=== PATIENT | female | born 1975 | race Caucasian/White ===

== ENCOUNTER 2022-08-27 21:29 | Emergency (ER) | payer SELFPAY ==
[~2022-08-27] VITALS: Ht 157.5 cm; Wt 79.0 kg
[2022-08-27 22:12] VITALS: BP 135/71
[2022-08-27] MEDS ORDERED: IBUPROFEN 600MG TABLET PO ONE (22:15)
[2022-08-27] MEDS ORDERED: NAPR500T7 MT (22:56)
== END 2022-08-27 23:10 | disposition home or self-care (01) ==
LOC: ER 21:29
DX: S89.91XA Unspecified injury of right lower leg, initial encounter (principal); G89.11 Acute pain due to trauma; M25.521 Pain in right elbow; G43.909 Migraine, unspecified, not intractable, without status migrainosus; W19.XXXA Unspecified fall, initial encounter; Y93.89 Activity, other specified; Y92.488 Other paved roadways as the place of occurrence of the external cause; Y99.8 Other external cause status
CPT/HCPCS: 29505; 73070; 73560; 73590; 81025; 99284

== ENCOUNTER 2022-09-07 15:41 | Emergency (ER) | payer BC ==
[~2022-09-07] VITALS: Ht 157.5 cm; Wt 81.0 kg
[~2022-09-07 15:41] MED LIST: NAPR500T7 MT
[2022-09-07] MEDS ORDERED: P50 MT (17:53)
[2022-09-07] MEDS ORDERED: T3 PO (17:53)
[2022-09-07] MEDS ORDERED: GABA-532 MT (17:53)
[2022-09-07] MEDS ORDERED: FLAX1CAP9 PO (17:53)
[2022-09-07] MEDS ORDERED: HYPR15DR23 CO (17:55)
[2022-09-07] MEDS ORDERED: ACETAMINOPHEN WITH CODEINE 300/30MG TABLET PO ONE (18:00)
[2022-09-07] MEDS ORDERED: GABAPENTIN 300MG CAPSULE PO ONE (18:00)
[2022-09-07 19:17] VITALS: BP 132/78
== END 2022-09-07 19:19 | disposition home or self-care (01) ==
LOC: ER 15:41
DX: B01.9 Varicella without complication (principal); G43.909 Migraine, unspecified, not intractable, without status migrainosus; Z79.899 Other long term (current) drug therapy
CPT/HCPCS: 81025; 99283

== ENCOUNTER 2022-09-19 18:52 | Emergency (ER) | payer BC ==
[~2022-09-19] VITALS: Ht 157.5 cm; Wt 76.0 kg
[~2022-09-19 18:52] MED LIST changes: +FLAX1CAP9 PO; +GABA-532 MT; +HYPR15DR23 CO; +P50 MT; +T3 PO
[2022-09-19 19:06] VITALS: BP 112/76
[2022-09-19] MEDS ORDERED: FLUORESCEIN SODIUM 1MG/STRIP LEFTEYE ONE (20:30)
[2022-09-19] MEDS ORDERED: TETRACAINE 0.5% OPHTH DROPS 4ML LEFTEYE ONE (20:30)
[2022-09-19] MEDS ORDERED: VALA100044 MT (23:46)
[2022-09-19] MEDS ORDERED: ACET-2708 MT (23:46)
[2022-09-19] MEDS ORDERED: P20 MT (23:46)
== END 2022-09-19 23:52 | disposition home or self-care (01) ==
LOC: ER 18:52
DX: G43.909 Migraine, unspecified, not intractable, without status migrainosus (principal); H92.02 Otalgia, left ear
CPT/HCPCS: 81025; 99283